=== PATIENT | female | born 1950 | race African-American/Black ===

== ENCOUNTER 2020-03-15 13:17 | Inpatient (IN) | payer OTHER ==
[~2020-03-15] VITALS: Ht 177.8 cm; Wt 156.6 kg
[2020-03-15 14:21] LABS: BASOPHILS % 0.5 % (0.0-2.0); EOSINOPHILS % 0.1 % (0.0-5.0); LYMPHOCYTES % 7.4 % (20.0-50.0); MEAN CORPUSCULAR HEMOGLOBIN 26.3 pg (28.0-32.0); MEAN CORPUSCULAR VOLUME 83.1 fL (81.0-99.0); MEAN PLATELET VOLUME 8.3 fl (7.4-10.4); MONOCYTES % 7.8 % (2.0-8.0); NEUTROPHILS % 84.2 % (40.0-76.0); PLATELET 317 x1000/uL (130-400); RED BLOOD CELL COUNT 2.59 mill/uL (4.2-5.4); RED CELL DISTRIBUTION WIDTH 15.7 % (11.6-14.6)
[2020-03-15 14:26] LABS: HEMATOCRIT. 21.5 % (36.0-48.0); HEMOGLOBIN. 6.8 g/dL (12.0-16.0)
[2020-03-15 14:28] LABS: CHLORIDE 106 mEq/L (98-107)
[2020-03-15] MEDS ORDERED: SODIUM CHLORIDE 0.9% 250 ML IV ONE (15:30)
[2020-03-15] MEDS ORDERED: PIPERACILLIN/TAZ 3.375G PREMIX 50 ML IV NR (15:45)
[2020-03-15] MEDS ORDERED: VANCOMYCIN 1 G PREMIX 200 ML IV NR (15:45)
[2020-03-15 16:03] LABS: INR 1.4; PROTHROMBIN TIME 14.5 sec (9.6-11.0)
[2020-03-15 16:29] LABS: CLARITY URINE CLOUDY (CLEAR); COLOR URINE YELLOW (YELLOW); KETONES URINE NEGATIVE (NEGATIVE); LEUKOCYTE ESTERASE URINE NEGATIVE (NEGATIVE); NITRITE URINE NEGATIVE (NEGATIVE); OCCULT BLOOD URINE NEGATIVE (NEGATIVE); PROTEIN URINE 1+ (NEGATIVE); SPECIFIC GRAVITY URINE 1.014 (1.005-1.030)
[2020-03-15] MEDS ORDERED: IPRATROPIUM BROMIDE (0.02%) 0.5MG/2.5ML NEB HHN SCH (18:00)
[2020-03-15] MEDS ORDERED: ONDANSETRON HCL 4MG/2ML INJ IV ONE (18:00)
[2020-03-15] MEDS ORDERED: ONDANSETRON HCL 4MG/2ML INJ IV PRN (21:15)
[2020-03-15] MEDS ORDERED: ZOLPIDEM TARTRATE 5MG TABLET PO PRN (21:15)
[2020-03-15] MEDS ORDERED: ACETAMINOPHEN 325MG TABLET PO PRN ×2 (21:15)
[2020-03-15] MEDS ORDERED: MAGNESIUM/ALUMINUM HYDROXIDE/SIMETHICONE 30ML UDC PO PRN (21:15)
[2020-03-15] MEDS ORDERED: DIPHENHYDRAMINE 50MG/ML VIAL IV PRN (21:15)
[2020-03-15] MEDS: SODIUM CHLORIDE 0.9% INJ 3ML FLUSH IVF SCH (22:00)
[2020-03-16] VITALS (13 sets, daily range): BP systolic 129–159; BP diastolic 65–99
[2020-03-16] MEDS: HYDROCODONE/ACETAMINOPHEN 10/325MG TABLET PO PRN ×2 (02:03→22:29)
[2020-03-16] MEDS: SODIUM CHLORIDE 0.9% INJ 3ML FLUSH IVF SCH (06:00)
[2020-03-16 09:21] LABS: HEMATOCRIT 21.1 % (36.0-48.0); MEAN CORPUSCULAR HEMOGLOBIN 27.5 pg (28.0-32.0); MEAN CORPUSCULAR VOLUME 83.6 fL (81.0-99.0); PLATELET 284 x1000/uL (130-400); RED BLOOD CELL COUNT 2.53 mill/uL (4.2-5.4); RED CELL DISTRIBUTION WIDTH 15.7 % (11.6-14.6)
[2020-03-16 09:27] LABS: HEMOGLOBIN 6.9 g/dL (12.0-16.0)
[2020-03-16] MEDS ORDERED: NA PHOS,M-B/NA PHOS,DI-BA ENEMA 118ML PR NR (15:15)
[2020-03-16] MEDS: FUROSEMIDE 40MG/4ML VIAL IVP SCH (15:37)
[2020-03-16] MEDS: SENNOSIDES 8.6MG TABLET PO SCH (17:54)
[2020-03-17] VITALS (12 sets, daily range): BP systolic 125–153; BP diastolic 60–81
[2020-03-17] MEDS: SODIUM CHLORIDE 0.9% INJ 3ML FLUSH IVF SCH ×4 (07:00→17:18)
[2020-03-17 08:57] LABS: HAPTOGLOBIN 274 mg/dL (30-200)
[2020-03-17] MEDS: SENNOSIDES 8.6MG TABLET PO SCH ×2 (09:00→17:00)
[2020-03-17] MEDS: FUROSEMIDE 40MG/4ML VIAL IVP SCH (09:21)
[2020-03-17 12:22] LABS: HEMATOCRIT 24.7 % (36.0-48.0); MEAN CORPUSCULAR HEMOGLOBIN 27.3 pg (28.0-32.0); MEAN CORPUSCULAR VOLUME 84.7 fL (81.0-99.0); PLATELET 302 x1000/uL (130-400); RED BLOOD CELL COUNT 2.92 mill/uL (4.2-5.4); RED CELL DISTRIBUTION WIDTH 15.9 % (11.6-14.6)
[2020-03-17] MEDS: HYDROCODONE/ACETAMINOPHEN 10/325MG TABLET PO PRN (20:39)
[2020-03-18 09:06] LABS: IMMUNOGLOBULIN A 314 mg/dL (87-352); IMMUNOGLOBULIN G 1249 mg/dL (586-1602); IMMUNOGLOBULIN M 178 mg/dL (26-217)
== END 2020-03-17 22:00 | disposition short-term general hospital (02) | DRG 180 ==
LOC: ER 13:17 → 5EST 15:38 → EDBEDREQTM 15:47 → EDBEDREQSVC 15:47 → EDBEDREQ 15:47 → ENRESERV 22:52
PROVIDERS: ADMIT Internal Medicine; ATTEND Internal Medicine
PROC: 30233N1 Transfusion of Nonautologous Red Blood Cells into Peripheral Vein, Percutaneous Approach (ICD-10-PCS; principal; 2020-03-15)
DX: C34.90 Malignant neoplasm of unspecified part of unspecified bronchus or lung (principal); J96.00 Acute respiratory failure, unspecified whether with hypoxia or hypercapnia; E43 Unspecified severe protein-calorie malnutrition; J18.9 Pneumonia, unspecified organism; C22.9 Malignant neoplasm of liver, not specified as primary or secondary; D62 Acute posthemorrhagic anemia; C79.9 Secondary malignant neoplasm of unspecified site; D68.9 Coagulation defect, unspecified; E87.2 Acidosis; Z68.43 Body mass index [BMI] 50.0-59.9, adult; R04.2 Hemoptysis; R65.10 Systemic inflammatory response syndrome (SIRS) of non-infectious origin without acute organ dysfunction; I10 Essential (primary) hypertension; D72.829 Elevated white blood cell count, unspecified; R74.01 Elevation of levels of liver transaminase levels; E66.01 Morbid (severe) obesity due to excess calories; E87.70 Fluid overload, unspecified; J45.909 Unspecified asthma, uncomplicated; F17.210 Nicotine dependence, cigarettes, uncomplicated; Z20.822 Contact with and (suspected) exposure to COVID-19; Z85.05 Personal history of malignant neoplasm of liver; Z85.118 Personal history of other malignant neoplasm of bronchus and lung; Z90.710 Acquired absence of both cervix and uterus; Z91.041 Radiographic dye allergy status; Z79.899 Other long term (current) drug therapy
CPT/HCPCS: 36415; 71045; 80053; 81003; 82378; 82784; 83010; 83605; 83615; 83880; 84145; 84484; 85025; 85027; 86334; 86850; 86880; 86900; 86920; 87426; 93005; 93970; 99291; J1940; J2405; J2543; J3370; P9016